=== PATIENT | female | born 1990 | race Caucasian/White ===

== ENCOUNTER 2019-01-17 17:12 | Emergency (ER) | payer OTHER, SELFPAY ==
[2019-01-17 17:19] VITALS: BP 148/96; PULSE 110; RESP 20; TEMP 36.7; O2SAT 100
--- NOTE | 2019-01-17 17:44 | DI.RAD_ITS ---
SYMPTOM/DIAGNOSIS: PAIN, ? FX LEFT ELBOW: Two views were obtained and show a large elbow joint effusion or hemarthrosis with a mildly comminuted fracture of the radial neck. No additional fracture on this limited series. LEFT FOREARM AND LEFT WRIST: Two views of the forearm and four views of the wrist were obtained. Radial neck fracture noted as seen on elbow films. No additional fracture is seen involving the forearm or wrist. Carpal alignment appears within normal limits.
--- NOTE | 2019-01-17 18:39 | DI.VRAD_ITS ---
EXAM: XR Left Elbow EXAM DATE/TIME: 01/17/2019 17:56 CLINICAL HISTORY: 28 years old, female; Left; Patient HX: Pain elbow/forearm/wrist TECHNIQUE: Imaging protocol: XR Left elbow. Views: 1 or 2 views. COMPARISON: CR XR FOREARM LT 01/17/2019 18:05 FINDINGS: Bones/joints: Acute fracture of the radial neck without significant displacement. Soft tissue swelling about the elbow with a joint effusion. Soft tissues: Please see above. IMPRESSION: Acute fracture of the radial neck without significant displacement. Dictated and Authenticated by: Tanesha Saravia MD. Ordering:ROBER Wheeler MD
--- NOTE | 2019-01-17 18:40 | DI.VRAD_ITS ---
EXAM: XR Left Forearm EXAM DATE/TIME: 01/17/2019 17:46 CLINICAL HISTORY: 28 years old, female; Lower or forearm; Left; Patient HX: Pain forearm; TECHNIQUE: Imaging protocol: XR Left forearm. Views: 2 views. COMPARISON: No relevant prior studies available. FINDINGS: Bones/joints: Please see elbow films regarding the radial neck fracture. A minimal apex posterior angulation of the radial neck fracture, better identified than on elbow films. The ulna is intact. Remainder of the radius is intact. Soft tissues: Swelling about the elbow. IMPRESSION: 1. Please see elbow films regarding the radial neck fracture. 2. A minimal apex posterior angulation of the radial neck fracture, better identified than on the elbow films. 3. The ulna is intact. Remainder of the radius is intact. Dictated and Authenticated by: Tanesha Saravia MD. Ordering:ROBER hWeeler MD
--- NOTE | 2019-01-17 18:41 | DI.VRAD_ITS ---
EXAM: XR Left Wrist EXAM DATE/TIME: 01/17/2019 17:46 CLINICAL HISTORY: 28 years old, female; Left; Patient HX: Pain forearm/wrist TECHNIQUE: Imaging protocol: XR Left wrist. Views: 3 or more views. COMPARISON: No relevant prior studies available. FINDINGS: Bones/joints: No acute fracture or subluxation. The scaphoid is intact. Please see elbow films regarding the proximal radial fracture. Distal radius is intact. Soft tissues: No suspicious lesions. IMPRESSION: No acute fracture or subluxation in the wrist. Dictated and Authenticated by: Tanesha Saravia MD. Ordering:ROBER Wheeler MD
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
[2019-01-17 20:28] VITALS: BP 128/70; PULSE 92; RESP 20; TEMP 36.7; O2SAT 99
[2019-01-17] MEDS: Ibuprofen 600 MG TAB (20:30)
== END 2019-01-17 20:10 | disposition home or self-care (01) ==
PROVIDERS: Emergency Provider Physician Assistant
DX: S52.125A Nondisplaced fracture of head of left radius, initial encounter for closed fracture (principal); V18.0XXA Pedal cycle driver injured in noncollision transport accident in nontraffic accident, initial encounter; Y93.55 Activity, bike riding
CPT/HCPCS: 24650; 99284; 73070; 73090; 73110; 99282; L3650